=== PATIENT | female | born 1990 | race Caucasian/White ===

== ENCOUNTER 2017-02-19 04:53 | Emergency (ER) | payer MEDICAID ==
[2017-02-19 04:54] VITALS: BMI 43.2
[2017-02-19] MEDS ORDERED: Lidocaine 2% Inj (20ml) INFIL ONE (05:12)
[2017-02-19 05:18] VITALS: BP 117/70; PULSE 94; RESP 16; TEMP 97.5; O2SAT 100
[2017-02-19] MEDS ORDERED: Lidocaine 2% Inj (20ml) ONE (05:28)
--- NOTE | 2017-02-19 05:57 | C.PDOC ---
History Of Present Illness Patient is a 26 year old female who presents to the ER for an evaluation of a laceration on her left middle finger. Patient states she fell last night with a bottle in her hand and cute finger with glass. Pt reports , wound has been bleeding all night. Denies deformities, weakness or sensory deficits. Time Seen by Provider: 02/19/17 05:00 Chief Complaint (Nursing): Abnormal Skin Integrity History Per: Patient Onset/Duration Of Symptoms: Sudden Onset Current Symptoms Are (Timing): Still Present Past Medical History Reviewed: Historical Data, Nursing Documentation, Vital Signs Vital Signs: Last Vital Signs Temp 97.5 F L 02/19/17 05:16 Pulse 94 H 02/19/17 05:16 Resp 16 02/19/17 05:16 BP 117/70 02/19/17 05:16 Pulse Ox 100 02/19/17 06:37 - Medical History PMH: Asthma Denies: Chronic Kidney Disease Family History: States: No Known Family Hx - Social History Hx Tobacco Use: No Hx Alcohol Use: Yes Hx Substance Use: No - Immunization History Hx Tetanus Toxoid Vaccination: No Hx Influenza Vaccination: No Hx Pneumococcal Vaccination: No Review Of Systems Except As Marked, All Systems Reviewed And Found Negative. Musculoskeletal: Positive for: Hand Pain Skin: Positive for: Lesions Neurological: Negative for: Weakness, Numbness Physical Exam - Physical Exam Appears: Well, Non-toxic, No Acute Distress Skin: Normal Color, Warm, Other (Left middle finger: small puncture wound over palmar aspect distal pahalnx and middle phalanx, total 2 am length. (+)2 cm U- shape laceration to ulnar aspect Left hand covered with clot. No edema, no erythema, no proximal streaking.) Extremity: Normal ROM (Left hand), Capillary Refill (less then 2sec to Left hand ), No Deformity Neurological/Psych: Oriented x3, Normal Speech, Normal Motor, Normal Sensation, Normal Reflexes ED Course And Treatment O2 Sat by Pulse Oximetry: 100 Progress Note: Pt appeared very anxious, sutures offered to close the wound, refused. Left hand; lacerations soaked, irrigated and closed with skin adhesive /steri strips, per pt choice. FAROM, no neurovascular deficits, no deformity. tetanus given. Pt advised on wound care. ref. to f/u with PMD in 1-2 days for re-eavl. return if any new changes. Laceration - Laceration Repair Left hand Wound Length (In cm): 3cm Description Of Wound: Clean Wound Cleansed With: Betadine, Sterile Saline Wound Examination: Irrigated With Saline, No FB With Wound Exploration Wound Closure: Steri Strips, Skin Glue Wound Complexity: Simple Disposition Counseled Patient/Family Regarding: Diagnosis, Need For Followup - Disposition Referrals: [facility] [Outside] Fanta Razo MD [Staff Provider] - Disposition: HOME/ ROUTINE Disposition Time: 05:55 Condition: STABLE Additional Instructions: AVOID WATER EXPOSURE TO FINGER FOR 3-4 DAYS DO NOT REMOVED BANDAIDE, WILL COME OUT ITSELF LIGHT DUTY TO INJURED FINGER FOLLOW UP WITH PMD AND HAND SPECIALIST IN 2-3 DAYS FOR RE-EVALUATION. RETURN TO ED IF ANY WORSENING OR NEW CHANGES. Instructions: Laceration (ED), Skin Adhesive Care (ED) Forms: Work Excuse - Clinical Impression Clinical Impression: Laceration of finger - Scribe Statement The provider has reviewed the documentation as recorded by the Scribantonia Gonzalez All medical record entries made by the Lennyibantonia were at my direction and personally dictated by me. I have reviewed the chart and agree that the record accurately reflects my personal performance of the history, physical exam, medical decision making, and the department course for this patient. I have also personally directed, reviewed, and agree with the discharge instructions and disposition.
== END 2017-02-19 06:00 | disposition home or self-care (01) ==
LOC: C.ER 04:53
DX: S61.213A Laceration without foreign body of left middle finger without damage to nail, initial encounter (principal); W01.110A Fall on same level from slipping, tripping and stumbling with subsequent striking against sharp glass, initial encounter; Y93.89 Activity, other specified; Y92.9 Unspecified place or not applicable

== ENCOUNTER 2017-06-24 21:31 | Emergency (ER) | payer MEDICAID ==
[2017-06-24 21:31] VITALS: BMI 43.2
--- NOTE | 2017-06-24 22:19 | C.PDOC ---
History Of Present Illness patient presents with worsening abdominal pain. has had abdominal pain over the last few months. No f/c/n/v, no diarrhea or constipation Time Seen by Provider: 06/24/17 22:19 Chief Complaint (Nursing): GI Problem History Per: Patient History/Exam Limitations: no limitations Onset/Duration Of Symptoms: Days (>100) Context: Food Severity: Mild Pain Scale Rating Of: 2 Location Of Pain/Discomfort: Diffuse Radiation Of Pain To:: None Quality Of Discomfort: Dull, Cramping Associated Symptoms: denies: Fever, Chills, Nausea, Vomiting Alleviating Factors: None Last Bowel Movement: Today Recent travel outside of the [place]: No Additional History Per: Patient Abnormal Vaginal Bleeding: No Past Medical History Reviewed: Historical Data, Nursing Documentation, Vital Signs Vital Signs: Last Vital Signs Temp 98.0 F 06/24/17 21:51 Pulse 70 06/24/17 22:44 Resp 14 06/24/17 22:44 BP 138/85 06/24/17 21:51 Pulse Ox 99 06/24/17 22:44 - Medical History PMH: Asthma Denies: Chronic Kidney Disease Family History: States: No Known Family Hx - Social History Hx Tobacco Use: No Hx Alcohol Use: No Hx Substance Use: No - Immunization History Hx Tetanus Toxoid Vaccination: Yes Hx Influenza Vaccination: No Hx Pneumococcal Vaccination: No Review Of Systems Constitutional: Negative for: Fever, Chills Eyes: Negative for: Redness ENT: Negative for: Throat Pain Cardiovascular: Negative for: Chest Pain Respiratory: Negative for: Shortness of Breath Gastrointestinal: Positive for: Abdominal Pain. Negative for: Nausea, Vomiting , Constipation Genitourinary: Negative for: Dysuria Musculoskeletal: Negative for: Back Pain Skin: Negative for: Rash Neurological: Negative for: Weakness Psych: Negative for: Anxiety Physical Exam - Physical Exam Appears: Non-toxic, No Acute Distress Skin: Warm, Dry Head: Normacephalic Oral Mucosa: Moist Neck: Supple Chest: Symmetrical Cardiovascular: Rhythm Regular Respiratory: No Rales, No Rhonchi, No Wheezing Gastrointestinal/Abdominal: Soft, Tenderness (mild, diffuse) Back: No CVA Tenderness Extremity: Normal ROM Extremity: Bilateral: Atraumatic, Normal Color And Temperature, Normal ROM Pulses: Left Dorsalis Pedis: Normal, Right Dorsalis Pedis: Normal Neurological/Psych: Oriented x3, Normal Speech, Normal Cognition Gait: Steady ED Course And Treatment - Laboratory Results Result Diagrams: 06/24/17 22:37 06/24/17 22:37 O2 Sat by Pulse Oximetry: 100 Pulse Ox Interpretation: Normal Reevaluation Time: 01:27 Reassessment Condition: Improved Disposition Counseled Patient/Family Regarding: Studies Performed, Diagnosis, Need For Followup, Rx Given - Disposition Referrals: Mekhi Reed, ROJELIO, [employer] DEVELOPER [Advanced Practice Nurse] - Disposition: HOME/ ROUTINE Disposition Time: 22:19 Condition: FAIR Prescriptions: Metronidazole [Flagyl] 500 mg PO TID #21 tablet Polyethylene Glycol 3350 [Miralax] 17 gm PO DAILY #270 ml Instructions: Abdominal Pain (ED), Mesenteric Adenitis (ED) Forms: [facility] (Hebrew) - Clinical Impression Clinical Impression: Abdominal pain, Mesenteric adenitis
[2017-06-24] MEDS ORDERED: Sodium Chloride 0.9% 1,000 ML IV ONE (22:27)
[2017-06-24] MEDS ORDERED: Sodium Chloride 0.9% 250 ML IV ONE (22:42)
[2017-06-24 22:43] LABS: BASO # 0.1 K/uL (0.0-0.2); BASO % 0.4 % (0.0-2.0); EOS # 0.3 K/uL (0.0-0.7); EOS % 2.2 % (0.0-4.0); HEMATOCRIT 37.4 % (34.0-47.0); LYMPH % 37.2 % (20.0-40.0); MEAN CORPUSCULAR HEMOGLOBIN 26.1 pg (27.0-31.0); MONO # 0.9 K/uL (0.0-0.8); MONO % 6.8 % (0.0-10.0); RED CELL DISTRIBUTION WIDTH 13.9 % (11.5-14.5); WHITE BLOOD COUNT 13.4 K/uL (4.8-10.8)
[2017-06-24 22:46] VITALS: RESP 14
[2017-06-24 22:46] LABS: MEAN CELL VOLUME 79.1 fL (81.0-99.0)
[2017-06-24 22:47] LABS: RBC URINE 1 /hpf (0-3); URINE BILIRUBIN NEGATIVE (NEGATIVE); URINE BLOOD NEGATIVE (NEGATIVE); URINE COLOR Straw (YELLOW); URINE GLUCOSE (UA) NORMAL (Normal); URINE KETONE NEGATIVE (NEGATIVE); URINE LEUKOCYTE ESTERASE NEG Leu/uL (Negative); URINE PROTEIN NEGATIVE (NEGATIVE); URINE UROBILINOGEN NORMAL mg/dL (0.2-1.0); WBC URINE < 1 /hpf (0-5)
[2017-06-24 22:50] LABS: CHLORIDE 100 mmol/L (98-107); POTASSIUM 3.9 mmol/L (3.6-5.2); SODIUM 134 mmol/L (132-148)
[2017-06-24 22:52] LABS: AST/SGOT 20 U/L (14-36); BILIRUBIN,TOTAL 0.4 mg/dL (0.2-1.3); CARBON DIOXIDE 24 mmol/L (22-30); GFR AFRICAN-AMERICAN > 60
[2017-06-24 22:53] LABS: ALKALINE PHOSPHATASE 93 U/L (38-126); ALT/SGPT 54 U/L (9-52); BLOOD UREA NITROGEN 16 mg/dL (7-17); CALCIUM 8.7 mg/dl (8.6-10.4); GLUCOSE,RANDOM 79 mg/dL (65-105); TOTAL PROTEIN 7.8 g/dL (6.3-8.3)
[2017-06-25] MEDS ORDERED: Iodixanol 320 MG/ML 100 ML BOTTLE IV ONE (00:11)
--- NOTE | 2017-06-25 01:23 | CT ---
EXAM: CT Abdomen and Pelvis With Intravenous Contrast CLINICAL HISTORY: 26 years old, female; Pain; Abdominal pain; Patient HX: 12 x-ray images sent; Additional info: Abd pain TECHNIQUE: Axial computed tomography images of the abdomen and pelvis with intravenous contrast. All CT scans at this facility use one or more dose reduction techniques, viz.: automated exposure control; ma/kV adjustment per patient size (including targeted exams where dose is matched to indication; i.e. head); or iterative reconstruction technique. Coronal and sagittal reformatted images were created and reviewed. CONTRAST: 100 mL of [id number] administered intravenously. COMPARISON: CR - ABDOMEN (FLAT PLATE) 1VIEW 08/18/2015 10:01:45 PM FINDINGS: Lower thorax: No acute findings. ABDOMEN: Liver: Unremarkable. No mass. Gallbladder and bile ducts: Unremarkable. No calcified stones. No ductal dilation. Pancreas: Unremarkable. No mass. No ductal dilation. Spleen: Unremarkable. No splenomegaly. Adrenals: Unremarkable. No mass. Kidneys and ureters: Punctate left lower pole renal calculi. Right kidney is unremarkable. No hydronephrosis. Stomach and bowel: Multiple fluid filled, mildly prominent small bowel loops. The appearance is nonspecific. Appendix: No findings to suggest acute appendicitis. PELVIS: Bladder: Unremarkable. No mass. Reproductive: Unremarkable as visualized. ABDOMEN and PELVIS: Intraperitoneal space: Unremarkable. No free air. No significant fluid collection. Bones/joints: No acute fracture. No dislocation. Soft tissues: Unremarkable. Vasculature: Unremarkable. No abdominal aortic aneurysm. Lymph nodes: Few mildly prominent right lower quadrant mesenteric lymph nodes. IMPRESSION: 1. Few mildly prominent lymph nodes and fluid-filled small bowel loops. Changes may reflect mesenteric adenitis an enteritis. 2. Remainder of findings as above.
[2017-06-25 01:44] VITALS: BP 120/70; PULSE 80; TEMP 97.5; O2SAT 98
== END 2017-06-25 01:44 | disposition home or self-care (01) ==
LOC: C.ER 21:31
DX: I88.0 Nonspecific mesenteric lymphadenitis (principal); R10.9 Unspecified abdominal pain
CPT/HCPCS: 74177; 80053; 81001; 83690; 84703; 85025; 85610; 85730; 96374; 99283; J7040; Q9967